=== PATIENT | female | born 1960 | race Caucasian/White ===

== ENCOUNTER 2016-12-27 13:57 | Emergency (ER) | payer OTHER ==
[~2016-12-27] VITALS: Ht 170.2 cm; Wt 88.6 kg
[2016-12-27 14:00] VITALS: BP 148/80; TEMP 97.5
[2016-12-27] MEDS ORDERED: DITROPAN 5MG TAB5 MG PO (14:35)
[2016-12-27] MEDS ORDERED: ALDACTONE 25MG25 M1 PO (14:36)
[2016-12-27] MEDS ORDERED: PREMARIN 1.251.25 MG PO (14:36)
[2016-12-27] MEDS ORDERED: TOPROL XL 25MG25 MG PO (14:36)
[2016-12-27] MEDS ORDERED: CYMBALTA 60MG60 MG PO (14:37)
[2016-12-27] MEDS ORDERED: WELLBUTRIN XL300 M1 PO (14:37)
[2016-12-27] MEDS ORDERED: PRILOSEC 20MG20 MG PO (14:37)
[2016-12-27] MEDS ORDERED: STOOL SOFTENER100 M2 PO (14:39)
[2016-12-27] MEDS ORDERED: ALEVE 220MG220 MG PO (14:44)
[2016-12-27] MEDS ORDERED: ADDERALL20 MG PO (15:06)
[2016-12-27] MEDS ORDERED: AMBIEN 10MG10 MG PO (15:06)
[2016-12-27] MEDS ORDERED: XANAX .25M0.25 MG/TA PO (15:06)
[2016-12-27 15:09] LABS: PH 5 (5-8); SQUAMOUS EPITHELIAL 0-2 /hpf; URINE APPEARANCE Hazy; URINE BACTERIA Rare /hpf; URINE BILIRUBIN Negative (NEGATIVE); URINE BLOOD 2+ (NEGATIVE); URINE COLOR Yellow; URINE GLUCOSE Negative (NEGATIVE); URINE KETONE Negative (NEGATIVE); URINE RBC >50 /hpf; URINE UROBILINOGEN Negative (NEGATIVE)
[2016-12-27 15:10] LABS: URINE WBC >50 /hpf
[2016-12-27 15:29] LABS: BASO # 0.1 (0.0-0.2); BASO % 0.5 % (0.0-2.0); EOS # 0.2 (0.0-0.7); EOS % 1.8 % (0-4.0); GRAN # 7.1 (1.4-6.5); HEMATOCRIT 39.1 % (37.0-47.0); LYMPH # 2.4 (1.2-3.4); LYMPH % 22.7 % (20.0-51.0); MEAN CELL VOLUME 90 fl (80.0-100.0); MEAN CORPUSCULAR HEMOGLOBIN 30 pg (27.0-31.0); MEAN CORPUSCULAR HGB CONC 33 g/dl (33.0-37.0); MEAN PLATELET VOLUME 10.2 fl (7.4-10.4); MONO # 0.8 (0.1-0.6); MONO % 7.5 % (1.7-9.3); PLATELET COUNT 252 K/mm3 (130-400); RED BLOOD COUNT 4.33 M/mm3 (4.10-5.30); REDCELL DISTRIBUTION WIDTH-CV 12.5 % (11.5-14.5); WHITE BLOOD COUNT 10.6 K/mm3 (4.8-10.8)
[2016-12-27 15:42] LABS: ALBUMIN 3.6 gm/dL (3.5-5.0); BILIRUBIN,TOTAL 0.4 mg/dL (0.0-1.0); C-REACTIVE PROTEIN 1.2 mg/dL (0.0-0.9); CALCIUM 8.7 mg/dL (8.4-10.2); CREATININE, serum 0.7 mg/dL (0.52-1.25); POTASSIUM 4.1 mmol/L (3.4-5.0); TOTAL PROTEIN 6.2 gm/dL (6.4-8.2)
[2016-12-27] MEDS ORDERED: OMNICEF 300MG300 MG PO (16:34)
[2016-12-27 17:07] VITALS: PULSE 72
== END 2016-12-27 17:08 | disposition home or self-care (01) ==
LOC: COL.ER 13:57
PROVIDERS: Physician Assistant
DX: N39.0 Urinary tract infection, site not specified (principal); R91.1 Solitary pulmonary nodule
CPT/HCPCS: J0696; J7030; Q9967

== ENCOUNTER 2019-11-18 13:57 | Emergency (ER) | payer OTHER ==
[~2019-11-18] VITALS: Ht 167.6 cm; Wt 77.3 kg
[~2019-11-18 13:57] MED LIST: ADDERALL20 MG PO; ALDACTONE 25MG25 M1 PO; ALEVE 220MG220 MG PO; AMBIEN 10MG10 MG PO; CYMBALTA 60MG60 MG PO; DITROPAN 5MG TAB5 MG PO; OMNICEF 300MG300 MG PO; PREMARIN 1.251.25 MG PO; PRILOSEC 20MG20 MG PO; STOOL SOFTENER100 M2 PO; TOPROL XL 25MG25 MG PO; WELLBUTRIN XL300 M1 PO; XANAX .25M0.25 MG/TA PO
[2019-11-18 14:07] VITALS: TEMP 98.9
[2019-11-18 14:26] LABS: BASO # 0.1 (0.0-0.2); BASO % 0.4 % (0.0-2.0); EOS # 0.1 (0.0-0.7); EOS % 0.6 % (0-4.0); GRAN # 9.3 (1.4-6.5); GRAN % 68.3 % (42.2-75.2); HEMATOCRIT 44.7 % (37.0-47.0); LYMPH # 3.3 (1.2-3.4); LYMPH % 23.9 % (20.0-51.0); MEAN CELL VOLUME 88 fl (80.0-100.0); MEAN CORPUSCULAR HEMOGLOBIN 30 pg (27.0-31.0); MEAN CORPUSCULAR HGB CONC 34 g/dl (33.0-37.0); MEAN PLATELET VOLUME 10.5 fl (7.4-10.4); MONO # 0.9 (0.1-0.6); MONO % 6.4 % (1.7-9.3); PLATELET COUNT 288 K/mm3 (130-400); RED BLOOD COUNT 5.06 M/mm3 (4.10-5.30); REDCELL DISTRIBUTION WIDTH-CV 13.4 % (11.5-14.5)
[2019-11-18 14:33] LABS: ALBUMIN 4.4 gm/dL (3.5-5.0); BILIRUBIN,TOTAL 0.5 mg/dL (0.0-1.0); CALCIUM 9.8 mg/dL (8.4-10.2); CREATININE, serum 0.83 (0.52-1.25); POTASSIUM 3.9 mmol/L (3.4-5.0); TOTAL PROTEIN 7.7 gm/dL (6.4-8.2)
[2019-11-18 15:33] LABS: COLLECTION METHOD CLEAN CATCH
[2019-11-18 15:40] LABS: MUCOUS Present /lpf; PH 5 (5-8); SQUAMOUS EPITHELIAL 0-2 /hpf; URINE APPEARANCE Hazy; URINE BACTERIA Rare /hpf; URINE BILIRUBIN Negative (NEGATIVE); URINE BLOOD 3+ (NEGATIVE); URINE COLOR Yellow; URINE GLUCOSE Negative (NEGATIVE); URINE KETONE Negative (NEGATIVE); URINE LEUKOCYTE ESTERASE Negative (NEGATIVE); URINE NITRATE Negative (NEGATIVE); URINE PROTEIN(semi-quant) Negative (NEGATIVE); URINE RBC >50 /hpf; URINE UROBILINOGEN Negative (NEGATIVE)
[2019-11-18] MEDS ORDERED: NORCO 325 MG-51 TAB PO (16:25)
[2019-11-18] MEDS ORDERED: ZOFRAN ODT4 MG PO (16:25)
[2019-11-18 16:47] VITALS: BP 137/78; PULSE 72
== END 2019-11-18 16:45 | disposition home or self-care (01) ==
LOC: COL.ER 13:57
PROVIDERS: Emergency Medicine
DX: N20.1 Calculus of ureter (principal); Z88.0 Allergy status to penicillin; Z88.2 Allergy status to sulfonamides; Z88.8 Allergy status to other drugs, medicaments and biological substances
CPT/HCPCS: J1170; J2405; J7030; Q9967